=== PATIENT | female | born 1985 | race Caucasian/White ===

== ENCOUNTER 2022-10-22 00:16 | Emergency (ER) | payer MEDICAID ==
[~2022-10-22] VITALS: Ht 160 cm; Wt 72.6 kg
[2022-10-22 00:28] VITALS: BP 135/73
--- NOTE | 2022-10-22 01:01 | NUR ---
Pt here for a DUI draw which was done and a medical clearance. She denies any injury. MARK ANTHONY. Crying.
== END 2022-10-22 01:18 ==
LOC: ER 00:16
DX: Z00.00 Encounter for general adult medical examination without abnormal findings (principal); Z72.89 Other problems related to lifestyle
CPT/HCPCS: 99283